=== PATIENT | female | born 1990 | race Caucasian/White ===

== ENCOUNTER 2022-05-21 14:32 | Emergency (ER) | payer MEDICAID, SELFPAY ==
[2022-05-21 15:05] VITALS: BP 116/77; PULSE 73; RESP 16; TEMP 36.7; O2SAT 100
[2022-05-21 15:39] LABS: Basophils Absolute Auto 0.1 K/mm3 (0.0-0.1); Basophils Percent Auto 0.8 % (0.2-1.2); Eosinophils Absolute Auto 0.1 K/mm3 (0-0.3); Eosinophils Percent Auto 0.9 % (0-4.4); Hematocrit 44.9 % (37.0-47.0); Hemoglobin 15.2 g/dL (12.0-15.0); Immature Granulocyte Absolute 0.03 K/mm3 (0.00-0.031); Immature Granulocyte Percent A 0.3 % (0-0.5); Lymphocytes Absolute Auto 1.51 K/mm3 (0.9-3.2); Lymphocytes Percent Auto 14.5 % (18.3-44.2); Mean Corpuscular HGB Conc 33.9 g/dl (32-36); Mean Corpuscular Hemoglobin 29.1 pg (26-34); Mean Platelet Volume 10.3 fl (7.4-10.4); Monocytes Absolute Auto 0.6 K/mm3 (0.1-0.6); Monocytes Percent Auto 5.3 % (2.6-8.5); Neutrophils Absolute Auto 8.2 K/mm3 (1.3-6.7); Neutrophils Percent Auto 78.2 % (45.5-73.1); Platelet Count Result 289 k/mm3 (150-375); Red Blood Count 5.22 M/mm3 (4.2-5.4); Red Cell Distribution Width 12.2 % (11.5-14.5); White Blood Count 10.4 K/mm3 (4.5-10.0)
[2022-05-21 15:50] LABS: Alanine Aminotransferase 26 U/L (6-35); Alkaline Phosphatase 78 U/L (38-126); Anion Gap 4 mmol/L (8-16); Aspartate Amino Transferase 32 U/L (14-36); Bilirubin,Total 0.3 mg/dL (0.2-1.3); Blood Urea Nitrogen 8 mg/dL (7-17); Calcium 8.8 mg/dL (8.4-10.2); Carbon Dioxide 31 mmol/L (22-30); Chloride 101 mmol/L (98-107); Estimated CRCL calculation 104 ml/min; Estimated Glomerular Filt Rate > 60; Glucose 106 mg/dL (65-110); Lipase 17 U/L (23-300); Potassium 3.9 mmol/L (3.4-5.0); Sodium 136 mmol/L (137-145)
--- NOTE | 2022-05-21 15:52 | ED.GENADULT ---
HPI - General Adult General Chief complaint: Abdominal Pain Stated complaint: constipation Time Seen by Provider: 05/21/22 15:22 History of Present Illness HPI narrative: this is a 32-year-old female with history of constipation presenting ED with chief complaint of constipation. Patient have bowel movement 4 days. She is still passing gas. yesterday she started to use [id number] laxatives which caused her to have abdominal pain described as a cramping diffuse pain that is getting worse. Patient says this happened in the past and she usually requires an enema. Patient denies fever, chills, chest pain, difficulty breathing or urinary symptoms. She did have 1 episode of vomiting earlier. Related Data Allergies Allergy/AdvReac Type Severity Reaction Status Date / Time sulfamethoxazole Allergy Other Verified 05/21/22 16:32 [From Bactrim] trimethoprim [From Bactrim] Allergy Other Verified 05/21/22 16:32 Review of Systems Review of Systems: All systems reviewed & are unremarkable except as noted in HPI and below PMFSH Past Medical History Medical History Constipation Surgical History Surgical History History of cholecystectomy Social History Social History Social History: patient denies alcohol use, smokes pack cigarettes/ 2 day, denies marijuana Exam Narrative: APPEARANCE: No apparent distress. Head: atraumatic. EYES: EOMI, NOSE: Atraumatic NECK: Trachea midline RESPIRATORY: No increased rate of breathing CARDIOVASCULAR: RRR, ABDOMINAL: abdomen is soft, diffusely mildly, tender with no guarding or rebound MUSCULOSKELETAl: No obvious deformities NEURO: Alert. Moving 4/4 extremities SKIN:: Warm, dry. Normal color PSYCHIATRIC: Normal affect Course Vital Signs Vital signs: Vital Signs Temperature 98.0 F 05/21/22 15:05 Pulse Rate 73 05/21/22 15:05 Respiratory Rate 16 05/21/22 15:05 Blood Pressure 116/77 05/21/22 15:05 Pulse Oximetry 100 05/21/22 15:05 Temperature 98.0 F 05/21/22 15:05 Pulse Rate 73 05/21/22 15:05 Respiratory Rate 16 05/21/22 15:05 Blood Pressure 116/77 05/21/22 15:05 Pulse Oximetry 100 05/21/22 15:05 Medical Decision Making MDM Narrative Medical decision making narrative: this is a 32-year-old female presenting ED with chief complaint of constipation. She has no signs of obstruction at this time. Patient will be given a Fleet enema. Lab work was ordered per nursing protocol Lab work was within normal limits UA was a dirty catch but showed 21-50 red blood cells and 31-50 white blood cells. Patient be given a course of Keflex for UTI. After the enema the patient had a large bowel movement. She is ready for discharge. Vital Signs Vital Signs: Vital Signs Temperature 98.0 F 05/21/22 15:05 Pulse Rate 73 05/21/22 15:05 Respiratory Rate 16 05/21/22 15:05 Blood Pressure 116/77 05/21/22 15:05 Pulse Oximetry 100 05/21/22 15:05 Temperature 98.0 F 05/21/22 15:05 Pulse Rate 73 05/21/22 15:05 Respiratory Rate 16 05/21/22 15:05 Blood Pressure 116/77 05/21/22 15:05 Pulse Oximetry 100 05/21/22 15:05 Lab Data 05/21/22 15:29 05/21/22 15:29 Labs: Lab Results 05/21/22 05/21/22 05/21/22 Range/Units 15:29 15:29 15:29 WBC 10.4 H (4.5-10.0) K/mm3 RBC 5.22 (4.2-5.4) M/mm3 Hgb 15.2 H (12.0-15.0) g/dL Hct 44.9 (37.0-47.0) % MCV 86.0 (80-100) fl MCH 29.1 (26-34) pg MCHC 33.9 (32-36) g/dl RDW 12.2 (11.5-14.5) % Plt Count 289 (150-375) k/mm3 MPV 10.3 (7.4-10.4) fl Immature Gran % (Auto) 0.3 (0-0.5) % Neut % (Auto) 78.2 H (45.5-73.1) % Lymph % (Auto) 14.5 L (18.3-44.2) % [place] % (Auto) 5.3 (2.6-8.5) % Eos % (Auto) 0.9 (0-4.4) %
[2022-05-21 15:59] LABS: Add Urine Microscopic? YES; Appearance Urine Cloudy (Clear); Bilirubin Urine 1+ (Negative); Blood Urine Negative (Negative); Color Urine Yellow (Yellow); Glucose Urine UA Negative (Negative); Ketones Urine Negative (Negative); Leukocyte Esterase Ur Trace LEU/UL (Negative); Nitrate Urine Negative (Negative); Protein Urine Negative (Negative); Specific Grav Ur >= 1.030 (1.001-1.035); Urobilinogen Urine 0.2 mg/dL (<2.0)
[2022-05-21 16:13] LABS: Bacteria Urine Trace /hpf; Mucus Urine Moderate /lpf; RBC Urine 21-50 /hpf (0-2); Squamous Epithelial Cell Urine Many /hpf (Few); WBC Urine 31-50 /hpf
== END 2022-05-21 17:02 | disposition home or self-care (01) ==
PROVIDERS: Emergency Provider Emergency Medicine
DX: K59.00 Constipation, unspecified (principal); N39.0 Urinary tract infection, site not specified; F17.210 Nicotine dependence, cigarettes, uncomplicated
CPT/HCPCS: 36415; 80053; 81001; 81025; 83690; 85025; 87077; 87086; 87186; 99283